=== PATIENT | female | born 1985 | race African-American/Black ===

== ENCOUNTER 2017-07-14 16:40 | Emergency (ER) | payer OTHER, SELFPAY ==
[2017-07-14] MEDS ORDERED: ONDANSETRON 4 MG/2 ML VIAL ONE (18:17)
[2017-07-14] MEDS ORDERED: NA CHLORIDE 0.9% 1,000 ML ONE (18:17)
[2017-07-14 18:25] LABS: Absolute Lymphocytes (CBC) 1.7 K/uL (0.7-4.9); Absolute Neutrophil 7.4 K/uL (1.8-8.0); Basophils % 0.3 % (0-1.3); Eosinophils % 0.6 % (0-4.4); Hematocrit 43.2 % (36.0-45.0); Lymphocytes % 16.7 % (15.3-44.8); MCH 30.2 pg (27.0-35.0); MCV 92.8 fL (80-100); MPV 9.3 fL (7.6-11.3); Monocytes % 9.4 % (3.3-12.3); RBC Red Blood Cell Count 4.66 M/uL (3.86-4.86)
[2017-07-14 18:39] LABS: Potassium 3.1 mEq/L (3.6-5.0)
[2017-07-14 18:45] LABS: Albumin 4.9 g/dL (3.2-5.5); Bilirubin Direct 0.2 mg/dL (0-0.2); Bilirubin Total 0.9 mg/dL (0.3-1.2); Protein, Total 8.8 g/dL (6.0-8.3)
--- NOTE | 2017-07-14 19:21 | EDPHYS ---
Physician Documentation [facility] Name: Siva Brock Age: 32 yrs Sex: Female : 1985 Arrival Date: 07/14/2017 Time: 16:44 Bed 17 Private MD: None, None ED Physician Omari Goldstein HPI: 07/14 19:17 This 32 yrs old Black Female presents to ER via Ambulatory with complaints of Vomiting. pm1 19:17 The patient presents to the emergency department with nausea, vomiting, Multiple times. pm1 Decreased number today. Onset: The symptoms/episode began/occurred 2 day(s) ago. Possible causes: bad food exposure, chicken, fish. The symptoms are aggravated by nothing. The symptoms are alleviated by nothing. Associated signs and symptoms: Pertinent negatives: abdominal pain, constipation, diarrhea, dysuria, fever. Severity of symptoms: in the emergency department the symptoms have improved. The patient has not recently seen a physician, and does not have an established primary care provider. Patient ate out with a friend on Monday. Ate chicken and fish. 1 hour after eating patient with onset of nausea/vomiting. Patient denies abdominal pain to me. No diarrhea or fever. 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 - Social history:: Smoking status: Patient uses tobacco products, smokes one-half pack cigarettes per day. - Ebola Screening: : Patient negative for fever greater than or equal to 101.5 degrees Fahrenheit, and additional compatible Ebola Virus Disease symptoms Patient denies exposure to infectious person Patient denies travel to an Ebola-affected area in the 21 days before illness onset No symptoms or risks identified at this time. ROS: 19:17 Constitutional: Negative for fever, chills, and weight loss, Eyes: Negative for injury, pm1 pain, redness, and discharge, ENT: Negative for injury, pain, and discharge, Neck: Negative for injury, pain, and swelling, Cardiovascular: Negative for chest pain, palpitations, and edema, Respiratory: Negative for shortness of breath, cough, wheezing, and pleuritic chest pain. 19:17 Back: Negative for injury and pain, : Negative for injury, bleeding, discharge, and swelling, MS/Extremity: Negative for injury and deformity, Skin: Negative for injury, rash, and discoloration, Neuro: Negative for headache, weakness, numbness, tingling, and seizure. 19:17 Abdomen/GI: Positive for nausea and vomiting, Negative for abdominal pain, diarrhea, constipation. Exam: 19:17 Constitutional: This is a well developed, well nourished patient who is awake, alert, pm1 and in no acute distress. Head/Face: Normocephalic, atraumatic. Eyes: Pupils equal round and reactive to light, extra-ocular motions intact. Lids and lashes normal. Conjunctiva and sclera are non-icteric and not injected. Cornea within normal limits. Periorbital areas with no swelling, redness, or edema. ENT: Nares patent. No nasal discharge, no septal abnormalities noted. Tympanic membranes are normal and external auditory canals are clear. Oropharynx with no redness, swelling, or masses, exudates, or evidence of obstruction, uvula midline. Mucous membranes moist. Neck: Trachea midline, no thyromegaly or masses palpated, and no cervical lymphadenopathy. Supple, full range of motion without nuchal rigidity, or vertebral point tenderness. No Meningismus. Chest/axilla: Normal chest wall appearance and motion. Nontender with no deformity. No lesions are appreciated. Cardiovascular: Regular rate and rhythm with a normal S1 and S2. No gallops, murmurs, or rubs. Normal PMI, no JVD. No pulse deficits. Respiratory: Lungs have equal breath sounds bilaterally, clear to auscultation and percussion. No rales, rhonchi or wheezes noted. No increased work of breathing, no retractions or nasal flaring. Abdomen/GI: Soft, non-tender, with normal bowel sounds. No distension or tympany. No guarding or rebound. No evidence of tenderness throughout. Back: No spinal tenderness. No costovertebral tenderness. Full range of motion. Skin: Warm, dry with normal turgor. Normal color with no rashes, no lesions, and no evidence of cellulitis. MS/ Extremity: Pulses equal, no cyanosis. Neurovascular intact. Full, normal range of motion. 19:17 Neuro: Orientation: is normal, Motor: moves all fours, Sensation: is normal, no obvious gross deficits. Vital Signs: 16:53 BP 135 / 91; Pulse 64; Resp 17; Temp 98.4; Pulse Ox 100% on R/A; Weight 66.22 kg; aj Height 5 ft. 7 in. (170.18 cm); 18:22 BP 128 / 87; Pulse 59; Resp 18; Pulse Ox 99% on R/A; Pain 0/10; em 19:08 BP 135 / 88; Pulse 62; Resp 18; Pulse Ox 99% on R/A; Pain 0/10; ea 16:53 Body Mass Index 22.87 (66.22 kg, 170.18 cm) aj MDM: 17:36 Patient medically screened. pm1 19:20 Data reviewed: vital signs. Data interpreted: Pulse oximetry: on room air is 99 %. pm1 Interpretation: normal. Counseling: I had a detailed discussion with the patient and/or guardian regarding: the historical points, exam findings, and any diagnostic results supporting the discharge/admit diagnosis, lab results, the need for outpatient follow up, to return to the emergency department if symptoms worsen or persist or if there are any questions or concerns that arise at home. 07/14 17:57 Order name: Basic Metabolic Panel; Complete Time: 19:16 pm1 07/14 17:57 Order name: CBC with Diff; Complete Time: 18:36 pm1 07/14 17:57 Order name: Hepatic Function; Complete Time: 19:16 pm1 07/14 17:57 Order name: Lipase; Complete Time: 19:16 pm1 07/14 17:57 Order name: IV Saline Lock; Complete Time: 18:22 pm1 07/14 17:57 Order name: Labs collected and sent; Complete Time: 18:22 pm1 Administered Medications: 18:29 Drug: Zofran 4 mg Route: IVP; Site: right antecubital; ae1 19:07 Follow up: Response: No adverse reaction; Marked relief of symptoms ea 18:29 Drug: NS 0.9% 1000 ml Route: IV; Rate: 1 bolus; Site: right antecubital; em 19:08 Follow up: Response: No adverse reaction; IV Status: Completed infusion; IV Intake: ea 1000ml 19:29 Drug: Potassium Effervescent Tablet 50 mEq Route: PO; ea 19:48 Follow up: Response: No adverse reaction ea 19:47 Drug: Phenergan 12.5 mg Route: IVP; Site: right antecubital; ea 19:48 Follow up: Response: Medication administered at discharge. ea Disposition: 07/14/17 19:21 Discharged to Home. Impression: Nausea and vomiting. - Condition is Stable. - Discharge Instructions: Food Poisoning, Nausea and Vomiting, Viral Gastroenteritis. - Prescriptions for Zofran 4 mg Oral Tablet - take 1 tablet by ORAL route every 12 hours As needed; 20 tablet. Phenergan 25 mg Rectal Suppository - insert 1 suppository by RECTAL route every 6 hours As needed; 12 suppository. - Medication Reconciliation Form, Thank You Letter, Work release form form. - Follow up: Emergency Department; When: As needed; Reason: Worsening of condition. Follow up: Private Physician; When: 2 - 3 days; Reason: Recheck today's complaints, Continuance of care, Re-evaluation by your physician. - Problem is new. - Symptoms have improved. Addendum: 07/16/2017 13:29 Co-signature as Attending Physician, Omari Goldstein MD. g s Signatures: Dispatcher [employer] Nikole Solis RN RN aj Munoz, Edgar, TREND INVESTIGATOR TREND INVESTIGATOR Nikko Queen, MALLORY STEWARD/STEWARDESS TOURIST CLASS pm1 Nolan Marks RN RN ae1 Shikha Perez RN RN ea Starr, Gregory, MD MD gs Corrections: (The following items were deleted from the chart) 07/14 20:30 19:21 07/14/2017 19:21 Discharged to Home. Impression: Nausea and vomiting. Condition ea is Stable. Forms are Medication Reconciliation Form, Thank You Letter, Antibiotic Education, Prescription Opioid Use. Follow up: Emergency Department; When: As needed; Reason: Worsening of condition. Follow up: Private Physician; When: 2 - 3 days; Reason: Recheck today's complaints, Continuance of care, Re-evaluation by your physician. Problem is new. Symptoms have improved. pm1
--- NOTE | 2017-07-14 19:21 | ER ---
Nurse's Notes [facility] Name: Siva Brock Age: 32 yrs Sex: Female : 1985 Arrival Date: 07/14/2017 Time: 16:44 Bed 17 Private MD: None, None Diagnosis: Nausea and vomiting Presentation: 07/14 16:51 Presenting complaint: Patient states: N/V since Monday night, denies diarrhea. aj Transition of care: patient was not received from another setting of care. Onset of symptoms was July 14, 2017. Risk Assessment: Do you want to hurt yourself or someone else? Patient reports no desire to harm self or others. Initial Sepsis Screen: Does the patient meet any 2 criteria? No. Patient's initial sepsis screen is negative. Does the patient have a suspected source of infection? No. Patient's initial sepsis screen is negative. Care prior to arrival: None. 16:51 Method Of Arrival: Ambulatory aj 16:51 Acuity: ALEXIA 3 aj Triage Assessment: 16:53 General: Appears in no apparent distress. comfortable, Behavior is calm, cooperative, aj appropriate for age. Pain: Denies pain. Neuro: Level of Consciousness is awake, alert, obeys commands, Oriented to person, place, time, situation, Appropriate for age. Respiratory: Airway is patent Respiratory effort is even, unlabored, Respiratory pattern is regular, symmetrical. GI: Abdomen is flat, non-distended, Reports nausea, vomiting. Derm: Skin is intact, is healthy with good turgor, Skin is pink, warm \T\ dry. normal. 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 - Social history:: Smoking status: Patient uses tobacco products, smokes one-half pack cigarettes per day. - Ebola Screening: : Patient negative for fever greater than or equal to 101.5 degrees Fahrenheit, and additional compatible Ebola Virus Disease symptoms Patient denies exposure to infectious person Patient denies travel to an Ebola-affected area in the 21 days before illness onset No symptoms or risks identified at this time. Screenin:22 Abuse screen: Denies threats or abuse. Nutritional screening: No deficits noted. em Tuberculosis screening: No symptoms or risk factors identified. Fall Risk None identified. Assessment: 18:22 General: Appears in no apparent distress. uncomfortable, Behavior is calm, cooperative. em Pain: Denies pain. Neuro: Level of Consciousness is awake, alert, obeys commands, Oriented to person, place, time, situation. Respiratory: Airway is patent Respiratory effort is even, unlabored, Respiratory pattern is regular, symmetrical. GI: Abdomen is flat, Bowel sounds present X 4 quads. Abd is soft and non tender X 4 quads. Reports nausea, vomiting, Patient currently denies diarrhea. : No signs and/or symptoms were reported regarding the genitourinary system. Derm: Skin is intact, Skin is dry, Skin is normal. Musculoskeletal: Range of motion: intact in all extremities. 18:22 Reassessment: I agree with assessment completed by Alexy Holley LVN . aa5 19:06 General: Appears in no apparent distress. Behavior is calm, cooperative. Pain: Denies ea pain. Neuro: Level of Consciousness is awake, alert, obeys commands, Oriented to person, place, time, situation. Cardiovascular: Patient's skin is warm and dry. Respiratory: Airway is patent Respiratory effort is even, unlabored, Respiratory pattern is regular, symmetrical. GI: Abdomen is flat, non-distended, Bowel sounds present X 4 quads. Abd is soft and non tender X 4 quads. : No signs and/or symptoms were reported regarding the genitourinary system. Derm: Skin is intact, Skin is dry, Skin is normal. Musculoskeletal: No deficits noted. 19:48 Reassessment: Patient and/or family updated on plan of care and expected duration. Pain ea level reassessed. Patient is alert, oriented x 3, equal unlabored respirations, skin warm/dry/pink. Patient denies pain at this time. Patient states feeling better. Patient states symptoms have improved. Vital Signs: 16:53 BP 135 / 91; Pulse 64; Resp 17; Temp 98.4; Pulse Ox 100% on R/A; Weight 66.22 kg; aj Height 5 ft. 7 in. (170.18 cm); 18:22 BP 128 / 87; Pulse 59; Resp 18; Pulse Ox 99% on R/A; Pain 0/10; em 19:08 BP 135 / 88; Pulse 62; Resp 18; Pulse Ox 99% on R/A; Pain 0/10; ea 16:53 Body Mass Index 22.87 (66.22 kg, 170.18 cm) aj ED Course: 16:44 Patient arrived in ED. sb2 16:45 None, None is Private Physician. sb2 16:52 Triage completed. aj 16:53 Arm band placed on left wrist. Patient placed in waiting room, Patient notified of wait aj time. 17:36 Nikko Santos, MALLORY is PHCP. pm1 17:36 Omari Goldstein MD is Attending Physician. pm1 18:00 No provider procedures requiring assistance completed. Initial lab(s) drawn, by me, em sent to lab. Inserted saline lock: 20 gauge in right antecubital area, using aseptic technique. Blood collected. 18:03 Alexy Holley LVN is Primary Nurse. em 18:24 Patient has correct armband on for positive identification. Bed in low position. Call em light in reach. Adult w/ patient. 19:40 IV discontinued, intact, bleeding controlled, No redness/swelling at site. Pressure ea dressing applied. Administered Medications: 18:29 Drug: Zofran 4 mg Route: IVP; Site: right antecubital; ae1 19:07 Follow up: Response: No adverse reaction; Marked relief of symptoms ea 18:29 Drug: NS 0.9% 1000 ml Route: IV; Rate: 1 bolus; Site: right antecubital; em 19:08 Follow up: Response: No adverse reaction; IV Status: Completed infusion; IV Intake: ea 1000ml 19:29 Drug: Potassium Effervescent Tablet 50 mEq Route: PO; ea 19:48 Follow up: Response: No adverse reaction ea 19:47 Drug: Phenergan 12.5 mg Route: IVP; Site: right antecubital; ea 19:48 Follow up: Response: Medication administered at discharge. ea Intake: 19:08 IV: 1000ml; Total: 1000ml. ea Outcome: 19:21 Discharge ordered by . pm1 19:48 Discharged to home ambulatory, with family. ea 19:48 Condition: improved 19:48 Discharge instructions given to patient, Instructed on discharge instructions, follow up and referral plans. medication usage, Demonstrated understanding of instructions, follow-up care, medications, Prescriptions given X 2. 20:00 Patient left the ED. enriqueta Signatures: Nikole Veras, RN RN Alexy Kenney, DEVELOPMENT ARCHITECT DEVELOPMENT ARCHITECT Fatimah Juarez RN RN aa5 Nikko Santos, SHEET METAL WORK FURNACE INSTALLER SHEET METAL WORK FURNACE INSTALLER pm1 Nolan Marks RN RN ae1 Shikha Perez RN RN ea Bisi Magdaleno sb2 Corrections: (The following items were deleted from the chart) 20:58 20:30 Patient left the ED. enriqueta robison
[2017-07-14] MEDS ORDERED: POTASSIUM 25 MEQ EFFERV TAB ONE (19:28)
[2017-07-14] MEDS ORDERED: PROMETHAZINE 25 MG/ML VIAL ONE (19:41)
== END 2017-07-14 20:30 | disposition home or self-care (01) ==
LOC: ER 16:40
DX: R11.2 Nausea with vomiting, unspecified (principal); F17.210 Nicotine dependence, cigarettes, uncomplicated
CPT/HCPCS: 36415; 80048; 80076; 83690; 85025; 96361; 96374; 96375; 99284; J2405; J2550; J7030

== ENCOUNTER 2017-08-21 17:03 | Emergency (ER) | payer SELFPAY ==
[2017-08-21 18:50] LABS: Absolute Lymphocytes (CBC) 0.9 K/uL (0.7-4.9); Absolute Monocytes 1.3 K/uL (0.1-1.3); Absolute Neutrophil 12.9 K/uL (1.8-8.0); Basophils % 0.1 % (0-1.3); Eosinophils % 0.2 % (0-4.4); Hematocrit 39.7 % (36.0-45.0); Lymphocytes % 5.8 % (15.3-44.8); MCH 30.8 pg (27.0-35.0); MCV 92.9 fL (80-100); MPV 8.9 fL (7.6-11.3); Monocytes % 8.4 % (3.3-12.3); RBC Red Blood Cell Count 4.27 M/uL (3.86-4.86)
[2017-08-21] MEDS ORDERED: AMPICILLIN/SULBACTAM 3GM/VIAL ONE (18:51)
[2017-08-21] MEDS ORDERED: NA CHLORIDE 0.9% 100 ML IV ONE (18:52)
[2017-08-21 19:28] LABS: Bicarbonate 21 mmol/L (21-32); Glucose Level 84 mg/dL (74-106); Sodium Level 139 mmol/L (136-145)
[2017-08-21 19:29] LABS: BUN Blood Urea Nitrogen 7 mg/dL (7-18)
[2017-08-21] MEDS ORDERED: FENTANYL CITR 100 MCG/2 ML ONE (20:20)
--- NOTE | 2017-08-21 20:26 | RAD REPORT ---
EXAM DESCRIPTION: CT - Soft Tissue Neck W/Contr CLINICAL HISTORY: swelling Jaw pain and swelling. COMPARISON: No comparisons TECHNIQUE All CT scans are performed using dose optimization technique as appropriate and may includ e automated exposure control or mA/KV adjustment according to patient size. FINDINGS: Rim enhancing fluid collection measuring 2.6 x 1.6 cm is seen along the lingual aspect of the left mandible adjacent to the left third molar. Subtle periapical lucency is seen along the root of the left third molar which may be an odontogenic source for this abscess. The right mandibular thi rd molar is significantly eroded with moderate periapical abscess present as well. The abscess is seen to demonstrate extension inferiorly to the floor of the mouth very multiloculated component measures 13 x 10 mm, with adjacent enlarged left submandibular lymph nodes present, the la rgest measuring 7 mm. The tissues in the left submandibular region and left floor of the mouth are si gnificantly edematous. Fluid is seen to extend superiorly to the level of the parapharyngeal space on the left and left palatine tonsil which appear is prominent. The left tongue base tissues are prominent and effacement of the left piriform sinus noted with mild fluid seen extending along the left supraglottic soft tissues. The left aspect of the epiglottis is l ikely inflamed with significant thickened bulbous appearance of the left aryepiglottic fold. Mildly p rominent, presumably reactive left jugular chain lymph nodes are present. Mild fluid is seen extendin g inferiorly along the prevertebral space without evidence of prevertebral abscess at this time. Significant soft tissue swelling is seen about the left aspect of the jaw and mandible including the submental region. Visualize neck vasculature is patent. Thyroid gland is normal in size. 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 Inflammatory fluid and soft tissue edema is seen extending throughout multiple spaces of the neck on the left as detailed.
--- NOTE | 2017-08-21 20:54 | EDPHYS ---
Physician Documentation [facility] Name: Siva Brock Age: 32 yrs Sex: Female : 1985 Arrival Date: 08/21/2017 Time: 17:05 Bed 9 Private MD: None, None ED Physician Omari Goldstein HPI: 08/21 20:43 This 32 yrs old Black Female presents to ER via Ambulatory with complaints of Toothache.gs 20:43 The patient presents with swelling. The problem is located in the chin and left jaw. gs Onset: The symptoms/episode began/occurred gradually, 3 day(s) ago. Duration: The symptoms are continuous. Modifying factors: the symptoms are aggravated by chewing. Associated signs and symptoms: Pertinent positives: dysphagia, fever, swelling. Severity of symptoms: At their worst the symptoms were moderate, in the emergency department the symptoms are unchanged. The patient has not experienced similar symptoms in the past. 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 - Social history:: Smoking status: Patient uses tobacco products, smokes one-half pack cigarettes per day. - Ebola Screening: : No symptoms or risks identified at this time. ROS: 20:43 All other systems are negative. gs Exam: 20:43 Eyes: Pupils equal round and reactive to light, extra-ocular motions intact. Lids and gs lashes normal. Conjunctiva and sclera are non-icteric and not injected. Cornea within normal limits. Periorbital areas with no swelling, redness, or edema. Chest/axilla: Normal chest wall appearance and motion. Nontender with no deformity. No lesions are appreciated. Respiratory: Lungs have equal breath sounds bilaterally, clear to auscultation and percussion. No rales, rhonchi or wheezes noted. No increased work of breathing, no retractions or nasal flaring. Abdomen/GI: Soft, non-tender, with normal bowel sounds. No distension or tympany. No guarding or rebound. No evidence of tenderness throughout. Skin: Warm, dry with normal turgor. Normal color with no rashes, no lesions, and no evidence of cellulitis. MS/ Extremity: Pulses equal, no cyanosis. Neurovascular intact. Full, normal range of motion. Neuro: Awake and alert, GCS 15, oriented to person, place, time, and situation. Cranial nerves II-XII grossly intact. Motor strength 5/5 in all extremities. Sensory grossly intact. Cerebellar exam normal. Normal gait. 20:43 Constitutional: The patient appears alert, awake, in obvious distress, moderately distressed. 20:43 Head/face: Exam is negative for acute changes. 20:43 Head/face: Noted is swelling, that is moderate, of the chin and left jaw. 20:43 ENT: Dental exam: cellulitis, that is moderate, specifically in the lower left second molar (#18) and lower left first molar (#19), Voice: is normal, floor of mouth supple, externally submandibular area is firm mild amount of trismus noted, airway is patent .. Vital Signs: 17:34 BP 129 / 80; Pulse 110; Resp 18 S; Temp 99.9(O); Pulse Ox 98% on R/A; Weight 67.13 kg aa5 (R); Height 5 ft. 7 in. (170.18 cm) (R); Pain 8/10; 19:18 BP 111 / 75; rv 20:23 BP 122 / 65; Temp 99.2(O); rv 22:09 BP 117 / 75; rv 17:34 Body Mass Index 23.18 (67.13 kg, 170.18 cm) aa5 MDM: 18:30 Patient medically screened. gs 20:51 Differential diagnosis: dental caries, dental abscess, pericoronitis, nec fasc. Data reviewed: vital signs, nurses notes. 08/21 18:26 Order name: CBC with Diff; Complete Time: 19:56 08/21 18:26 Order name: Basic Metabolic Panel; Complete Time: 19:56 08/21 18:26 Order name: Blood Culture* 08/21 18:28 Order name: Soft Tissue Neck W/Contr; Complete Time: 20:35 EDMS Administered Medications: 19:04 Drug: Unasyn 3 grams Route: IVPB; Infused Over: 30 mins; Site: right antecubital; rv 19:34 Follow up: Response: No adverse reaction rv 20:26 Follow up: IV Status: Completed infusion rv 20:20 Drug: fentaNYL (PF) 50 mcg Route: IVP; Site: right antecubital; rv 20:44 Follow up: Response: No adverse reaction; Pain is decreased rv 20:58 Drug: NS 0.9% 1000 ml Route: IV; Rate: 125 ml/hr; Site: right antecubital; rv 22:41 Follow up: IV Status: Infusion continued upon transfer rv 22:23 Drug: fentaNYL (PF) 50 mcg Route: IVP; Site: right antecubital; rv 22:41 Follow up: Response: Medication administered at discharge. rv Disposition: 08/21/17 20:54 Transfer ordered to [facility]. Diagnosis is Cellulitis and abscess of mouth. - Reason for transfer: Higher level of care. - Accepting physician is kevinson. - Condition is Stable. - Problem is new. - Symptoms have improved. Signatures: Dispatcher [employer] EDMS Fatimah George RN RN aa5 Nilam Clay RN RN ak1 Omari Goldstein MD MD gs Vicente, Ronaldo RN RN rv Corrections: (The following items were deleted from the chart) 22:41 20:54 08/21/2017 20:54 Transfer ordered to [facility]. Diagnosis is Cellulitis and rv abscess of mouth. Reason for transfer: Higher level of care. [facility] Condition is Stable. Problem is new. Symptoms have improved. gs
--- NOTE | 2017-08-21 20:54 | ER ---
Nurse's Notes [facility] Name: Siva Brock Age: 32 yrs Sex: Female : 1985 Arrival Date: 08/21/2017 Time: 17:05 Bed 9 Private MD: None, None Diagnosis: Cellulitis and abscess of mouth Presentation: 08/21 17:32 Presenting complaint: Patient states: "I've had a toothache since around Monday". Pt aa5 reports swelling to left jaw since Monday. Pt states "It's hard to swallow now". Transition of care: patient was not received from another setting of care. Onset of symptoms was August 2017. Risk Assessment: Do you want to hurt yourself or someone else? Patient reports no desire to harm self or others. Initial Sepsis Screen: Does the patient meet any 2 criteria? No. Patient's initial sepsis screen is negative. Does the patient have a suspected source of infection? No. Patient's initial sepsis screen is negative. Care prior to arrival: None. 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 - Social history:: Smoking status: Patient uses tobacco products, smokes one-half pack cigarettes per day. - Ebola Screening: : No symptoms or risks identified at this time. Screenin:42 Abuse screen: Denies threats or abuse. Denies injuries from another. Nutritional rv screening: No deficits noted. Tuberculosis screening: No symptoms or risk factors identified. Fall Risk None identified. Assessment: 17:40 General: Appears in no apparent distress. comfortable, Behavior is calm, cooperative. rv Pain: Complains of pain in left ear and left jaw. Neuro: Level of Consciousness is awake, alert, obeys commands, Oriented to person, place, time, situation. Cardiovascular: Heart tones S1 S2 present. 17:41 Respiratory: Airway is patent. GI: No signs and/or symptoms were reported involving the rv gastrointestinal system. : No signs and/or symptoms were reported regarding the genitourinary system. EENT: Reports pain in left ear and left jaw. Derm: Skin is intact. 20:07 Reassessment: Patient is alert, oriented x 3, equal unlabored respirations, skin rv warm/dry/pink. CAME BACK FROM CT SCAN. AWAITING RESULTS. VITAL SIGNS ARE STABLE. 20:45 Reassessment: Patient appears in no apparent distress at this time. Patient is alert, rv oriented x 3, equal unlabored respirations, skin warm/dry/pink. PAIN DECREASED. Vital Signs: 17:34 BP 129 / 80; Pulse 110; Resp 18 S; Temp 99.9(O); Pulse Ox 98% on R/A; Weight 67.13 kg aa5 (R); Height 5 ft. 7 in. (170.18 cm) (R); Pain 8/10; 19:18 BP 111 / 75; rv 20:23 BP 122 / 65; Temp 99.2(O); rv 22:09 BP 117 / 75; rv 17:34 Body Mass Index 23.18 (67.13 kg, 170.18 cm) aa5 ED Course: 17:05 Patient arrived in ED. sb2 17:06 None, None is Private Physician. sb2 17:33 Triage completed. aa5 17:33 Arm band placed on. aa5 17:42 Patient has correct armband on for positive identification. Adult w/ patient. rv 18:17 Omari Goldstein MD is Attending Physician. gs 18:42 Inserted saline lock: 20 gauge in right antecubital area, using aseptic technique. rv 18:53 Radiology exam delayed due to lab results not completed at this time. (BUN/Creatinine). nj 19:20 Radiology exam delayed due to lab results not completed at this time. (BUN/Creatinine). kw1 20:04 Soft Tissue Neck W/Contr In Process Unspecified. EDMS 20:04 CT completed. Patient tolerated procedure well. Patient moved to PR. Patient moved back ut from CT. 22:40 No provider procedures requiring assistance completed. Patient transferred, IV remains rv in place. intact. Administered Medications: 19:04 Drug: Unasyn 3 grams Route: IVPB; Infused Over: 30 mins; Site: right antecubital; rv 19:34 Follow up: Response: No adverse reaction rv 20:26 Follow up: IV Status: Completed infusion rv 20:20 Drug: fentaNYL (PF) 50 mcg Route: IVP; Site: right antecubital; rv 20:44 Follow up: Response: No adverse reaction; Pain is decreased rv 20:58 Drug: NS 0.9% 1000 ml Route: IV; Rate: 125 ml/hr; Site: right antecubital; rv 22:41 Follow up: IV Status: Infusion continued upon transfer rv 22:23 Drug: fentaNYL (PF) 50 mcg Route: IVP; Site: right antecubital; rv 22:41 Follow up: Response: Medication administered at discharge. rv Outcome: 20:54 ER care complete, transfer ordered by . gs 22:[address] [facility], Transfer form completed. rv 22:40 Condition: stable 22:40 Instructed on the need for transfer. 22:41 Patient left the ED. rv Signatures: Dispatcher [employer] EDFatimah Payan, RN RN aa5 Andriy Albarran Gregory, MD MD Anastasia Harley1 Bisi Magdaleno2 Lenin Silverman RN RN rv
[2017-08-21] MEDS ORDERED: NA CHLORIDE 0.9% 1,000 ML ONE (20:55)
== END 2017-08-21 22:41 | disposition short-term general hospital (02) ==
LOC: ER 17:03
DX: K12.2 Cellulitis and abscess of mouth (principal); F17.210 Nicotine dependence, cigarettes, uncomplicated
CPT/HCPCS: 36415; 70491; 80048; 85025; 87040; 96361; 96365; 96375; 99285; J0295; J3010; J7030; Q9967

== ENCOUNTER 2020-08-12 19:06 | Emergency (ER) | payer SELFPAY ==
--- OUTSIDE RECORDS SUMMARY | 2020-08-12 19:09 | XMS REPORT | Continuity of Care Document ---
:1985 Author Organization [facility] t Address [address] [place] [address] Care Team Providers Name Role Phone Pcp, Does Not Have A Attending Clinician Lab, Fam Pob I Attending Clinician Unavailable Problems This patient has no known problems. Allergies, Adverse Reactions, Alerts This patient has no known allergies or adverse reactions. Medications This patient has no known medications. Procedures This patient has no known procedures. Encounters Start End Encounter Admission Attending Care Care Encounter Source Date/Time Date/Time Type Type Clinicians Facility Department ID 2019-08-08 2019-08-08 Telephone Pcp, [facility] [id number] 00:00:00 00:00:00 Patient Health [id number] Does Not [place] [id number] Have A Professio [phone] nal [address] 2019-08-07 2019-08-07 Laboratory Lab, [facility] [id number] 10:07:16 10:27:16 Only Fam Pob I Health [id number] [place] [id number] Professio [phone] [address]al [phone] Results This patient has no known results.
--- NOTE | 2020-08-12 21:50 | ER ---
Nurse's Notes [facility] Name: Siva Brock Age: 35 yrs Sex: Female : 1985 Arrival Date: 08/12/2020 Time: 19:09 Bed External Waiting Private MD: Diagnosis: Presentation: 08/12 19:37 Chief complaint: Patient states: RT flank pain started 5 days ago. Coronavirus screen: bs2 Client denies travel out of the [place] in the last 14 days. fever, At this time, the client does not indicate any symptoms associated with coronavirus-19. Ebola Screen: Patient negative for fever greater than or equal to 101.5 degrees Fahrenheit, and additional compatible Ebola Virus Disease symptoms Patient denies exposure to infectious person. Patient denies travel to an Ebola-affected area in the 21 days before illness onset. Initial Sepsis Screen: Does the patient meet any 2 criteria? No. Patient's initial sepsis screen is negative. Does the patient have a suspected source of infection? No. Patient's initial sepsis screen is negative. Risk Assessment: Do you want to hurt yourself or someone else? Patient reports no desire to harm self or others. Onset of symptoms was August 07, 2020. 19:37 Method Of Arrival: Ambulatory bs2 19:37 Acuity: ALEXIA 3 bs2 Triage Assessment: 19:41 General: Appears in no apparent distress. uncomfortable, Behavior is calm, cooperative, bs2 anxious. Pain: Complains of pain in abdomen Alleviated by rest. Historical: - Allergies: 19:40 No Known Allergies; bs2 - Home Meds: 19:40 None [Active]; bs2 - PMHx: 19:40 None; bs2 - PSHx: 19:40 Ligation of fallopian tube; bs2 - Immunization history:: Client reports having NOT received the Covid vaccine. Flu vaccine is not up to date. - Social history:: Smoking status: Patient reports the use of cigarette tobacco products, smokes one-half pack cigarettes per day. Assessment: 21:09 Reassessment: pt called in waiting room with no response. tr6 Vital Signs: 19:37 BP 120 / 80; Pulse 111; Resp 18; Temp 100.2; Pulse Ox 99% ; Weight 78.47 kg (R); Height bs2 5 ft. 7 in. (170.18 cm); Pain 6/10; 19:37 Body Mass Index 27.10 (78.47 kg, 170.18 cm) bs2 ED Course: 19:09 Patient arrived in ED. es 19:40 Triage completed. bs2 19:42 Arm band placed on left wrist. bs2 21:07 Frances Booth, RN is Primary Nurse. tr6 Administered Medications: No medications were administered Outcome: 21:49 Patient left the ED. em Signatures: Shameka Mulligan Edgar, RN RN em Frances Booth, RN RN tr6 Miriam Alvarez bs2
[2020-08-12 22:24] VITALS: BP 120/80; TEMP 100.2; O2SAT 99
== END 2020-08-12 21:49 | disposition left against medical advice (07) ==
LOC: ER 19:06
DX: Z02.9 Encounter for administrative examinations, unspecified (principal)